=== PATIENT | female | born 1980 ===

== ENCOUNTER 2019-06-01 00:13 | Emergency (ER) | payer SELFPAY ==
[2019-06-01] MEDS ORDERED: Acetaminophen 325 MG TAB ONE (00:52)
[2019-06-01] MEDS ORDERED: traMADol HCl 50 MG TAB ONE (00:52)
--- NOTE | 2019-06-01 07:45 | CT ---
CERVCAL SPINE CT NONCONTRAST: Date: 06/01/19 CLINICAL HISTORY: Neck injury with pain. FINDINGS: There is reversal of normal cervical curvature which may be positional. Beam attenuation does limit v isualization at the level of the cervical spine/cervicothoracic junction. The craniocervical junction is intact. No evidence of compression fracture or subluxation. Disc space heights are relatively wel l preserved. There is no acute facet malalignment. IMPRESSION: No acute osseous abnormality of the cervical spine. POS: ARELY
== END 2019-06-01 01:11 | disposition home or self-care (01) ==
LOC: BURERS 00:13
DX: S13.4XXA Sprain of ligaments of cervical spine, initial encounter (principal); V40.9XXA Unspecified car occupant injured in collision with pedestrian or animal in traffic accident, initial encounter
CPT/HCPCS: 72125; G0390